=== PATIENT | male | born 1990 | race Caucasian/White ===

== ENCOUNTER 2017-10-22 06:17 | Emergency (ER) | payer SELFPAY ==
[~2017-10-22] VITALS: Ht 180.3 cm; Wt 80.0 kg
[~2017-10-22 06:17] MED LIST: BACT800T5 PO; CLEO300C2 PO
[2017-10-22 06:21] VITALS: BP 118/77; PULSE 79; RESP 18; O2SAT 100
[2017-10-22 06:37] VITALS: BP 111/83; PULSE 70; RESP 20; O2SAT 100
[2017-10-22 07:04] VITALS: BP 111/82; PULSE 80; RESP 18; O2SAT 100
[2017-10-22 07:07] VITALS: BP 111/82; PULSE 80; RESP 18; O2SAT 100
--- NOTE | 2017-10-22 07:13 | PD ---
HPI Chief Complaint: Respiratory Symptoms Time Seen by Provider: 07:04 Travel History International Travel<30 days: No Contact w/Intl Traveler<30days: No Traveled to known affect area: No History of Present Illness HPI This is a 27-year-old gentleman with a history of tobacco use, who presents today with complaints of wheezing and shortness of breath. Patient states he is working in his attic yesterday and there was a lot of dust and insulation. He states that he was coughing while working out there. He states this morning he woke up with wheezing and shortness of breath. He denies any fevers, chills. He denies any productive cough. He denies any history of reactive airway disease. He does use tobacco products. He has no other medical issues. [facility] Past Medical History Medical History: Denies Significant Hx Diminished Hearing: No Past Surgical History Surgical History: No Previous Surgery Genitourinary Surgery: Yes (testicle sx ) Social History Alcohol Use: No Tobacco Use: Yes (/2 PPD) Substance Use: Yes (HEROIN. DILAUDID -IV, METH) Allergies-Medications (Allergen,Severity, Reaction): Coded Allergies: No Known Allergies (Verified Adverse Reaction, Unknown, 10/22/17) Reported Meds & Prescriptions Reported Meds & Active Scripts Active No Active Prescriptions or Reported Medications Review of Systems Except as stated in HPI: all other systems reviewed are Neg General / Constitutional: No: Fever, Chills HENT: No: Headaches, Lightheadedness Cardiovascular: No: Chest Pain or Discomfort, Palpitations Respiratory: Positive: Shortness of Breath, Wheezing, No: Cough Gastrointestinal: No: Nausea, Vomiting, Abdominal Pain Genitourinary: No: Frequency, Dysuria Musculoskeletal: No: Weakness, Pain Neurologic: No: Weakness, Dizziness Psychiatric: No: Anxiety, Depression Physical Exam Narrative GENERAL: Well-nourished, well-developed patient. SKIN: Focused skin assessment warm/dry. HEAD: Normocephalic/atraumatic. EYES: No scleral icterus. No injection or drainage. NECK: Supple, trachea midline. CARDIOVASCULAR: Regular rate and rhythm without murmurs, gallops, or rubs. RESPIRATORY: Breath sounds equal. Bilateral lower lobe expiratory wheezes. No Rales. GASTROINTESTINAL: Abdomen soft, non-tender, nondistended. MUSCULOSKELETAL: No cyanosis, or edema. NEUROLOGICAL: Awake and alert. Cranial nerves II through XII intact. Motor grossly within normal limits. Five out of 5 muscle strength in all muscle groups. Normal speech. Data Data Last Documented VS Vital Signs Date Time Temp Pulse Resp B/P (MAP) Pulse Ox O2 Delivery O2 Flow Rate FiO2 10/22/17 07:07 100 Room Air 10/22/17 07:07 80 18 111/82 (92) Orders Orders Ecg Monitoring (10/22/17 07:04) Iv Access Insert/Monitor (10/22/17 07:04) Oximetry (10/22/17 07:04) Oxygen Administration (10/22/17 07:04) Albuterol Neb (Albuterol Neb) (10/22/17 07:15) Albuterol-Ipratropium Neb (Duoneb Neb) (10/22/17 07:15) Sodium Chloride 0.9% Flush (Ns Flush) (10/22/17 07:15) Methylprednisolone So Succ Inj (Solumedr (10/22/17 08:00) MDM Medical Decision Making Medical Screen Exam Complete: Yes Emergency Medical Condition: Yes Differential Diagnosis Bronchitis versus reactive airway disease versus pneumonia Narrative Course 27 year old male presents today with complaints of shortness of breath and wheezing after he reports he was up in the attic yesterday with dust and and sublation. The patient has no fever or chills. There is no Rales. He was given Solu-Medrol 125 mg I V times one dose. He's been given 3 nebulizer treatments. On reexamination, his lungs are much clearer without wheezes. He states he feels much better. He'll be discharged with a Medrol Dosepak. He'll be instructed to return of he develops any worsening shortness breath, fevers chills, or any other reason that concerned him. Diagnosis Primary Impression: Reactive airway disease Additional Instructions: Avoid the attic to any of working up there, wear a mask. Try to stop smoking. Return if feeling worse. Med/Other Pt SpecificInfo: Prescription(s) given Scripts Methylprednisolone Dosepak (Medrol Dosepak) 4 Mg Dspk 4 MG PO DIRECTED, #1 DSPK 0 Refills Per Pharmacist direction Prov: Jose Francisco Anne MD 10/22/17 Disposition: 01 DISCHARGE HOME Condition: Stable Jose Francisco Anne MD Oct 22, 2017 07:13
[2017-10-22] MEDS: RESP: ALBUTEROL 2.5 MG/IPRATROPIUM 0.5 MG NEB (SCH) INH ×2 (07:14→07:15)
[2017-10-22] MEDS ORDERED: RESP: ALBUTEROL 2.5 MG/3 ML NEB (SCH) INH ONE (07:15)
[2017-10-22] MEDS ORDERED: methylPREDNISolone SOD SUCC 125 MG/2 ML VIAL IM ONE (07:15)
[2017-10-22] MEDS ORDERED: SODIUM CHLORIDE 0.9% FLUSH 10 ML FLUSH IVF PRN (07:15)
[2017-10-22] MEDS ORDERED: methylPREDNISolone SOD SUCC 125 MG/2 ML VIAL IV PUSH ONE (08:00)
[2017-10-22] MEDS ORDERED: MEDR4PAK PO (10:06)
[2017-10-22 10:23] VITALS: BP 116/72
== END 2017-10-22 10:40 | disposition home or self-care (01) ==
LOC: NEPC 06:17
DX: J45.909 Unspecified asthma, uncomplicated (principal); F17.210 Nicotine dependence, cigarettes, uncomplicated
CPT/HCPCS: 94664; 96372; 96374; 99283; J2930; J7613